=== PATIENT | female | born 1950 | race Caucasian/White ===

== ENCOUNTER 2021-07-08 04:46 | Emergency (ER) | payer OTHER ==
[~2021-07-08] VITALS: Ht 157.5 cm; Wt 68.0 kg
[2021-07-08] MEDS ORDERED: ONDANSETRON ODT 4 MG TAB PO ONE (05:45)
[2021-07-08] MEDS ORDERED: SUMAtriptan SUCCINATE 6 MG/0.5 ML VL SC ONE (06:45)
[2021-07-08 06:51] LABS: Basophils # (auto) 0 10 ^3/uL (0-0.2); Basophils % (auto) 0.4 % (0.0-2.0); Eosinophils # (auto) 0.1 10 ^3/uL (0-0.8); Hematocrit 38.2 % (36.0-46.0); Hemoglobin 13.3 g/dL (12.2-16.2); Lymphocytes # (auto) 0.9 10 ^3/uL (0.4-5.4); Lymphocytes % (auto) 15.9 % (10.0-50.0); Mean Corpuscular Hemoglobin 29.7 pg (28.0-32.0); Mean Corpuscular Hgb Conc. 34.8 g/dL (32.0-36.0); Mean Corpuscular Volume 85.4 fL (80.0-100.0); Monocytes # (auto) 0.5 10 ^3/uL (0-1.3); Monocytes % (auto) 8.9 % (0.0-12.0); Neutrophils # (auto) 4.1 10 ^3/uL (1.6-8.6); Neutrophils % (auto) 73.8 % (37.0-80.0); Nucleated Red Blood Cells % 0.1 %; Red Blood Cells 4.47 10^6/uL (4.0-5.20); Red Cell Distribution Width 14.1 % (11.8-14.3); White Blood Cell 5.5 10^3/uL (4.4-10.8)
[2021-07-08 07:08] LABS: Albumin 4.1 g/dL (3.4-5.0); Calcium 9.2 mg/dL (8.5-10.1); Magnesium 2.4 mg/dL (1.6-2.6)
[2021-07-08 07:15] LABS: BUN/Creatinine Ratio 18.8; Bilirubin, Total 0.5 mg/dL (0.2-1.0)
[2021-07-08] MEDS ORDERED: METOCLOPRAMIDE HCL 5MG/ml INJ 2ml VIAL IV ONE (08:15)
[2021-07-08] MEDS ORDERED: MAGNESIUM SULFATE 1GM/100ML 100 ML IV ONE (08:15)
[2021-07-08] MEDS ORDERED: POTASSIUM EFFERVESENT TAB 25 MEQ PO ONE (08:15)
[2021-07-08] MEDS: POTASSIUM CHL 10MEQ/50ML 50 ML IV SCH ×2 (08:29→09:15)
[2021-07-08] MEDS ORDERED: SODIUM CHLORIDE 0.9% 1,000 ML IV ONE (08:30)
[2021-07-08] MEDS ORDERED: amLODIPine BESYLATE 5 MG TAB PO ONE (08:45)
[2021-07-08 10:01] VITALS: BP 134/80
== END 2021-07-08 12:25 | disposition home or self-care (01) ==
LOC: ER 04:46
DX: R51.9 Headache, unspecified (principal); I10 Essential (primary) hypertension; E78.5 Hyperlipidemia, unspecified
CPT/HCPCS: 36415; 70450; 80053; 83735; 84484; 85025; 93005; 96361; 96365; 96366; 96372; 96375; 99285; J2765; J3030; J3475; J3480; Q0162

== ENCOUNTER 2025-01-04 02:41 | Emergency (ER) | payer OTHER ==
[~2025-01-04] VITALS: Ht 167.6 cm; Wt 63.0 kg
--- NOTE | 2025-01-04 03:30 | ED.PDOC ---
Dilan. trauma (HPI) HPI Comments 74-year-old female who came to ER via EMS for rib pain. Patient had a ground level fall 2 days ago, and she fell badly on her right side. Denies any head trauma or loss of consciousness. Patient complaining of right ankle pain, right ribcage pain, bilateral shoulder pain, lower back pains Chief Complaint: Rib Pain Time Seen by MD: 03:29 Primary Care Provider: Dr. Call Reviewed notes: Nurses Notes Allergies: Coded Allergies: NO KNOWN ALLERGIES (Unverified , 07/08/21) Home Meds Active Scripts Lidocaine (Lidocaine Topical Pain Pa) 4 % Pad, 4 % EX DAILY PRN, #30 PAD Prov:CHRISTIAN HERNÁNDEZ MD 01/04/25 Gabapentin (Once-Daily) (Gabapentin) 300 Mg Tab, 300 MG PO Q6HP PRN, #60 TAB Prov:CHRISTIAN HERNÁNDEZ MD 01/04/25 Information Source: Patient Mode of Arrival: Ambulatory Severity: Moderate Timing: Hours Duration: Since onset Prehospital treatment: None Location: (R) Ankle, Back, Chest, (L) Shoulder, (R) Shoulder Mechanism: Fall Past Medical History PAST MEDICAL HISTORY: High Lipids, HTN, UTI'S Surgical History: Denies all surgeries 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 Family History Family History: Reviewed,noncontributory to illness Social History Smoker: Non-Smoker Alcohol: Denies ETOH Use Drugs: Denies Drug Use Lives In: Home Constitutional: denies: chills, diaphoresis, fatigue, fever, malaise, sweats, weakness, others EENTM: denies: blurred vision, double vision, ear bleeding, ear discharge, ear drainage, ear pain, ear ringing, eye pain, eye redness, hearing loss, mouth pain, mouth swelling, nasal discharge, nose bleeding, nose congestion, nose pain, photophobia, tearing, throat pain, throat swelling, voice changes, others Respiratory: denies: cough, hemoptysis, orthopnea, SOB at rest, shortness of breath, SOB with excertion, stridor, wheezing, others Cardiovascular: reports: chest pain (Right ribcage); denies: dizzy spells, diaphoresis, Dyspnea on exertion, edema, irregular heart beat, left arm pain, lightheadedness, palpitations, PND, syncope, others Gastrointestinal: denies: abdomen distended, abdominal pain, blood streaked bowels, constipated, diarrhea, dysphagia, difficulty swallowing, hematemesis, melena, nausea, poor appetite, poor fluid intake, rectal bleeding, rectal pain, vomiting, others Genitourinary: denies: abnormal vagina bleeding, burning, dyspareunia, dysuria, flank pain, frequency, hematuria, incontinence, pain, , vagina discharge, urgency, others Neurological: denies: dizziness, fainting, headache, left sided numbness, left sided weakness, numbness, paresthesia, pre-existing deficit, right sided numbness, right sided weakness, seizure, speech problems, tingling, tremors, weakness, others Musculoskeletal: reports: back pain, joint pain (Right ankle, bilateral shoulders); denies: gout, joint swelling, muscle pain, muscle stiffness, neck pain, others Integumetry: denies: bruises, change in color, change in hair/nails, dryness, laceration, lesions, lumps, rash, wounds, others Allergic/Immunocompromised: denies: Difficulty Healing, Frequent Infections, Hives, Itching, others Hematologic/Lymphatic: denies: anemia, blood clots, easy bleeding, easy bruising, swollen glands, others Endocrine: denies: excessive hunger, excessive sweating, excessive thirst, excessive urination, flushing, intolerance to cold, intolerance to heat, unexplained weight gain, unexplained weight loss, others Psychiatric: denies: anxiety, bipolar disorder, depression, hopeless, panic disorder, schizophrenia, sleepless, suicidal, others Physical Exam General Appearance: No Apparent Distress, Normal HEENT: Normal ENT Inspection, Pharynx Normal, TMs Normal Neck: Full Range of Motion, Non-Tender, Normal, Normal Inspection Respiratory: Chest Non-Tender, Lungs Clear, No Accessory Muscle Use, No Respiratory Distress, Normal Breath Sounds Cardiovascular: No Edema, No JVD, No Murmur, No Gallop, Normal Peripheral Pulses, Regular Rate/Rhythm Breast Exam: Deferred Gastrointestinal: No Organomegaly, Non Tender, No Pulsatile Mass, Normal Bowel Sounds, Soft Genitalia: Deferred Pelvic: Deferred Rectal: Deferred Extremities: No calf tenderness, Normal capillary refill, Normal inspection, Normal range of motion, Non-tender, No pedal edema Musculoskeletal : Apperance: Normal Neurologic: Alert, coffee brewer II-XII nml as Tested, No Motor Deficits, Normal Affect, Normal Mood, No Sensory Deficits Cerebellar Function: Normal Reflexes: Normal Skin: Dry, Normal Color, Warm Lymphatic: No Adenopathy Was a procedure done? Was a procedure done?: No Differential Diagnosis Multiple Trauma: Fractures, Abrasions, Contusion X-Ray, Labs, Meds, VS Vital Signs Date Time Temp Pulse Resp B/P (MAP) Pulse Ox O2 Delivery O2 Flow Rate FiO2 01/04/25 05:39 91 13 97 Room Air 01/04/25 05:39 97.7 91 13 131/75 (93) 97 97.7 01/04/25 05:35 91 13 131/75 01/04/25 02:41 98.0 99 16 123/68 99 98.0 Current Medications Medications (Trade) Dose Ordered Sig/Sharla Route Start Time Stop Time Status Last Admin Ondansetron HCl (Zofran) 4 mg ONCE ONCE IV 01/04/25 03:30 01/04/25 03:31 DC 01/04/25 05:34 Morphine Sulfate 4 mg ONCE ONCE IV 01/04/25 03:30 01/04/25 03:31 DC 01/04/25 05:35 EXAM: XY R SHOULDER 2+ VIEW XRAY HISTORY: pain / fall COMPARISON: None TECHNIQUE: Four views of the right shoulder were performed. FINDINGS: No acute fracture or dislocation are identified about the right shoulder. No significant degenerative changes or loss of subacromial space. IMPRESSION: 1. Unremarkable radiographs of the right shoulder. EXAM: XY R ANKLE 3 VIEW HISTORY: pain s/p fall COMPARISON: None TECHNIQUE: Three views of the right ankle were performed. IMPRESSION: Casting material obscures evaluation of osseous detail. The distal tibia appears intact. Possible healing fracture of the distal fibula. Ankle mortise appears intact. : XY LUMBAR SPINE 3 VIEW HISTORY: pain / fall COMPARISON: None TECHNIQUE: AP and lateral views of the lumbar spine and spot lateral of the lumbosacral junction were performed. IMPRESSION: No evidence of acute compression deformity. Severe degenerative changes throughout the thoracic and lumbar spine with endplate changes and intervertebral disc space narrowing at every level. There is facet arthropathy at every level. Levoscoliosis of the lumbar spine. Calcification in the left upper abdomen likely represents renal calculi. T RADIOGRAPH Indication: pain / fall Technique: Single frontal view of the chest was obtained with 4 views of the right ribs. Comparison: None IMPRESSION: Heart appears normal in size. The lungs appear clear without focal airspace opacity, effusion, or pneumothorax. Subsegmental atelectasis in the left mid lung. Tortuosity of the thoracic aorta. There is a nondisplaced fracture of the lateral right 10th rib. Time of 1ST Reevaluation: 03:27 Reevaluation 1ST: Unchanged Patient Education/Counseling: Diagnosis, Treatment Family Education/Counseling: Diagnosis, Treatment Departure 1 Departure Time of Disposition: 05:00 Impression: Primary Impression: Fracture of one rib, right side, initial encounter for closed fracture Disposition: 01 HOME / SELF CARE / HOMELESS Condition: Stable e-Prescriptions Lidocaine (Lidocaine Topical Pain Pa) 4 % Pad 4 % EX DAILY PRN, #30 PAD Prov: CHRISTIAN HERNÁNDEZ MD 01/04/25 Gabapentin (Once-Daily) (Gabapentin) 300 Mg Tab 300 MG PO Q6HP PRN, #60 TAB Prov: CHRISTIAN HERNÁNDEZ MD 01/04/25 Discharged With: Self Critical Care Note Critical Care Time?: No Stability Stability form required: No Heart Score Heart Score: Heart Score Response (Comments) Value History N/A 0 EKG N/A 0 Age N/A 0 Risk Factors N/A 0 Troponin N/A 0 Total 0 I personally scribed for CHRISTIAN HERNÁNDEZ MD ([email or web address]) on 01/04/25 at 03:30. Electronically submitted by Adin Ruiz ([email or web address]). I personally scribed for CHRISTIAN HERNÁNDEZ MD ([email or web address]) on 01/04/25 at 04:37. Elec tronically submitted by Adin Ruiz ([facility]). I personally scribed for CHRISTIAN HERNÁNDEZ MD (DEANDRE) on 01/04/25 at 04:54. Electronically submitted by Adin Ruiz ([facility]). CHRISTIAN HERNÁNDEZ MD Jan 04, 2025 03:30
--- NOTE | 2025-01-04 04:29 | DVH ---
EXAM: XY R ANKLE 3 VIEW HISTORY: pain s/p fall COMPARISON: None TECHNIQUE: Three views of the right ankle were performed. IMPRESSION: Casting material obscures evaluation of osseous detail. The distal tibia appears intact. Possible he aling fracture of the distal fibula. Ankle mortise appears intact.
--- NOTE | 2025-01-04 04:30 | DVH ---
EXAM: XY LUMBAR SPINE 3 VIEW HISTORY: pain / fall COMPARISON: None TECHNIQUE: AP and lateral views of the lumbar spine and spot lateral of the lumbosacral junction were performed. IMPRESSION: No evidence of acute compression deformity. Severe degenerative changes throughout the thoracic and lumbar spine with endplate changes and intervertebral disc space narrowing at every level. There is f acet arthropathy at every level. Levoscoliosis of the lumbar spine. Calcification in the left upper a bdomen likely represents renal calculi.
--- NOTE | 2025-01-04 04:32 | DVH ---
CHEST RADIOGRAPH Indication: pain / fall Technique: Single frontal view of the chest was obtained with 4 views of the right ribs. Comparison: None IMPRESSION: Heart appears normal in size. The lungs appear clear without focal airspace opacity, effusion, or pn eumothorax. Subsegmental atelectasis in the left mid lung. Tortuosity of the thoracic aorta. There is a nondisplaced fracture of the lateral right 10th rib.
--- NOTE | 2025-01-04 04:32 | DVH ---
EXAM: XY R SHOULDER 2+ VIEW XRAY HISTORY: pain / fall COMPARISON: None TECHNIQUE: Four views of the right shoulder were performed. FINDINGS: No acute fracture or dislocation are identified about the right shoulder. No significant degenerativ e changes or loss of subacromial space. IMPRESSION: 1. Unremarkable radiographs of the right shoulder.
[2025-01-04] MEDS ORDERED: GABA300T4 PO (04:59)
[2025-01-04] MEDS ORDERED: LIDO4PAD52 EX (04:59)
[2025-01-04] MEDS: ONDANSETRON HCL 4 MG/2 ML VIAL IV ONE (05:34)
[2025-01-04] MEDS: HYDROcodone-ACET 10/325MG TAB PO ONE (05:35)
[2025-01-04] MEDS: MORPHINE SULFATE 4 MG/ML SYR/VIAL IV ONE (05:35)
[2025-01-04 05:39] VITALS: TEMP 97.7; O2SAT 97
[2025-01-04 06:04] VITALS: BP 128/77; PULSE 87; RESP 14
== END 2025-01-04 06:15 | disposition home or self-care (01) ==
LOC: ER 02:41 → EDUNIT# 02:41 → EDBD 02:41 → ER 06:10
DX: S22.31XA Fracture of one rib, right side, initial encounter for closed fracture (principal); E78.5 Hyperlipidemia, unspecified; I10 Essential (primary) hypertension; Z87.440 Personal history of urinary (tract) infections; Z79.899 Other long term (current) drug therapy; W18.30XA Fall on same level, unspecified, initial encounter; Y93.89 Activity, other specified; Y92.89 Other specified places as the place of occurrence of the external cause; Y99.8 Other external cause status
CPT/HCPCS: 71101; 72100; 73030; 73610; 96374; 96375; 99284; J2270; J2405